=== PATIENT | male | born 1960 | race Caucasian/White ===

== ENCOUNTER 2018-04-06 23:38 | Emergency (ER) | payer MEDICAID ==
[~2018-04-06] VITALS: Ht 180.3 cm; Wt 113.4 kg
[~2018-04-06 23:38] MED LIST: ABILIFY10 MG ORAL; ALBUTEROL SULF8.5 GM INH; AMLODIPINE BESY10 MG ORAL; AZITHROMYCIN250 MG ORAL; FLUTICASONE PRO16 G1 NASAL; FUROSEMIDE20 M1 ORAL; HYDROXYZIN50 MG/25 M PO; IBUPROFEN600 MG ORAL; LEVAQUIN750 MG ORAL; LISINOPRIL-HCT1 EAC2 ORAL; METOPROLOL SUC100 MG ORAL; NAPROXEN500 M2 ORAL; NORCO 5-325 TA1 EACH ORAL; NORCO 5-325 TA1 EACH PO; PREDNISONE20 MG ORAL; QUETIAPINE FUMA25 MG ORAL; VENLAFAXINE HC150 MG ORAL
[2018-04-06 23:50] VITALS: BP 130/79
[2018-04-07] MEDS ORDERED: Thiamine HCl 100 MG in D5W 55 ML IVPB ONE ×2
--- NOTE | 2018-04-07 00:47 | Emergency Room Report ---
History of Present Illness General Chief Complaint: Behavioral Complaint Source: Patient Present Illness HPI Patient is a 57-year-old male brought in by EMS after increased suicidal thoughts. The patient reports drinking heavily earlier in the day. He states his become increasingly depressed over his relationship and states that he had been taking of harming himself. The patient reports wanting to stab himself with a knife but does not own a knife. The patient reports previously being on Celexa as well as other antidepressants. He denies any current medical treatment. He reports hospitalization approximate one year ago. Allergies: Coded Allergies: No Known Allergies (Unverified , 07/16/13) Patient History Past Medical History: see triage record Reviewed Nursing Documentation: PMH: Agreed; PSxH: Agreed Nursing Documentation-PMH Hx Hypertension: Yes Hx Asthma: Yes Review of Systems All Other Systems: negative except mentioned in HPI Physical Exam Vital Signs Date Time Temp Pulse Resp B/P (MAP) Pulse Ox O2 Delivery O2 Flow Rate FiO2 04/06/18 23:39 98.0 98 19 147/80 98 Room Air 98.1 Sp02 EP Interpretation: reviewed, normal General Appearance: alert/responsive, no apparent distress, GCS 15, non-toxic Head: normocephalic, atraumatic Eyes: normal eye exam, PERRL, lids + conjunctiva normal ENT: hearing intact, no angioedema Neck: supple/symm/no masses, no meningismus Respiratory: effort normal, no wheezing, chest symmetrical Cardiovascular: regular rate, rhythm, no edema Cardiovascular #2: 2+ carotid (R), 2+ carotid (L), 2+ dorsalis pedis (R), 2+ dorsalis pedis (L) Gastrointestinal: non-tender, no mass, non-distended, no rebound/guarding, normal bowel sounds Musculoskeletal: gait & station normal, strength & tone normal, normal ROM, non -tender Neurologic: oriented x3, sensory intact, normal speech Psychiatric: normal inspection, judgment & insight normal, memory normal, no delusions Skin: no rash, well hydrated Lymphatic: normal inspection Medical Decision Making Diagnostic Impression: Primary Impression: Suicidal ideation Additional Impression: Alcohol abuse ER Course patient presented for suicidal thoughts.Differential diagnoses include substance abuse, psychosis, bipolar disorder, depression, malingering. Because of complexity of patient's case laboratory testing and imaging studies were ordered.The laboratory testing showed evidence of elevated blood alcohol level. The patient was noted to be placed on a 5150 by [employer] for danger to self.The patient be medically cleared after alcohol level decreases. I anticipate the patient will be transferred for psychiatric placement.The patient is medically cleared for psychiatric placement. Labs Test 04/07/18 00:45 04/07/18 03:00 White Blood Count 5.6 K/UL (4.8-10.8) Red Blood Count 5.01 M/UL (4.70-6.10) Hemoglobin 14.6 G/DL (14.2-18.0) Hematocrit 45.2 % (42.0-52.0) Mean Corpuscular Volume 90 FL (80-99) Mean Corpuscular Hemoglobin 29.1 PG (27.0-31.0) Mean Corpuscular Hemoglobin Concent 32.3 G/DL (32.0-36.0) Red Cell Distribution Width 11.8 % (11.6-14.8) Platelet Count 182 K/UL (150-450) Mean Platelet Volume 6.1 FL (6.5-10.1) Neutrophils (%) (Auto) 59.3 % (45.0-75.0) Lymphocytes (%) (Auto) 21.5 % (20.0-45.0) Monocytes (%) (Auto) 14.7 % (1.0-10.0) Eosinophils (%) (Auto) 3.2 % (0.0-3.0) Basophils (%) (Auto) 1.3 % (0.0-2.0) Sodium Level 143 MMOL/L (136-145) Potassium Level 3.3 MMOL/L (3.5-5.1) Chloride Level 106 MMOL/L (98-107) Carbon Dioxide Level 26 MMOL/L (21-32) Anion Gap 11 mmol/L (5-15) Blood Urea Nitrogen 8 mg/dL (7-18) Creatinine 0.8 MG/DL (0.55-1.30) Estimat Glomerular Filtration Rate > 60 mL/min (>60) Glucose Level 112 MG/DL (74-106) Calcium Level 8.4 MG/DL (8.5-10.1) Total Bilirubin 0.5 MG/DL (0.2-1.0) Aspartate Amino Transf (AST/SGOT) 71 U/L (15-37) Alanine Aminotransferase (ALT/SGPT) 61 U/L (12-78) Alkaline Phosphatase 70 U/L (46-116) Total Protein 7.5 G/DL (6.4-8.2) Albumin 3.0 G/DL (3.4-5.0) Globulin 4.5 g/dL Albumin/Globulin Ratio 0.7 (1.0-2.7) Salicylates Level 1.8 ug/mL (2.8-20) Urine Opiates Screen Negative (NEGATIVE) Acetaminophen Level < 2 MCG/ML (10-30) Urine Barbiturates Screen Negative (NEGATIVE) Phencyclidine (PCP) Screen Negative (NEGATIVE) Urine Amphetamines Screen Negative (NEGATIVE) Urine Benzodiazepines Screen Negative (NEGATIVE) Urine Cocaine Screen Negative (NEGATIVE) Urine Marijuana (THC) Screen Positive (NEGATIVE) Serum Alcohol < 3 mg/dL Last Vital Signs Date Time Temp Pulse Resp B/P (MAP) Pulse Ox O2 Delivery O2 Flow Rate FiO2 04/06/18 23:39 98.0 98 19 147/80 98 Room Air 98.1 Status: improved Disposition: XFER TO PSYCH HOSP/UNIT Condition: Stable Referrals: [facility],REFERRING (PCP) Pablo Sanchez MD Apr 07, 2018 00:47
[2018-04-07 01:34] LABS: BASOPHILS % (AUTO) 1.3 % (0.0-2.0); EOSINOPHILS % (AUTO) 3.2 % (0.0-3.0); HEMATOCRIT 45.2 % (42.0-52.0); HEMOGLOBIN 14.6 G/DL (14.2-18.0); LYMPHOCYTES % (AUTO) 21.5 % (20.0-45.0); MEAN CORPUSCULAR VOLUME 90 FL (80-99); MONOCYTES % (AUTO) 14.7 % (1.0-10.0); NEUTROPHILS % (AUTO) 59.3 % (45.0-75.0); PLATELET COUNT 182 K/UL (150-450); RED BLOOD COUNT 5.01 M/UL (4.70-6.10); RED CELL DISTRIBUTION WIDTH 11.8 % (11.6-14.8); WHITE BLOOD COUNT 5.6 K/UL (4.8-10.8)
[2018-04-07 01:44] LABS: ANION GAP 11 mmol/L (5-15); BLOOD UREA NITROGEN 8 mg/dL (7-18); CALCIUM 8.4 MG/DL (8.5-10.1); CARBON DIOXIDE 26 MMOL/L (21-32); CHLORIDE 106 MMOL/L (98-107); CREATININE 0.8 MG/DL (0.55-1.30); POTASSIUM 3.3 MMOL/L (3.5-5.1); SODIUM 143 MMOL/L (136-145)
[2018-04-07 01:49] LABS: ALANINE AMINOTRANSFERASE 61 U/L (12-78); ALBUMIN/GLOBULIN RATIO 0.7 (1.0-2.7); ALKALINE PHOSPHATASE 70 U/L (46-116); ASPARTATE AMINO TRANSFERASE 71 U/L (15-37); BILIRUBIN,TOTAL 0.5 MG/DL (0.2-1.0)
[2018-04-07 04:00] VITALS: BP 129/75
[2018-04-07 06:54] VITALS: BP 137/90
[2018-04-07] MEDS ORDERED: NKM (07:17)
[2018-04-07 07:24] VITALS: BP 133/90
[2018-04-07 10:40] VITALS: BP 127/88
[2018-04-07 12:14] LABS: APPEARANCE,URINE CLEAR; BILIRUBIN, URINE NEGATIVE (NEGATIVE); GLUCOSE, URINE (UA) NEGATIVE (NEGATIVE); KETONES,URINE NEGATIVE (NEGATIVE); LEUKOCYTE ESTERASE ,URINE 1+ (NEGATIVE); NITRITE,URINE NEGATIVE (NEGATIVE); PH,URINE 6 (4.5-8.0)
[2018-04-07 12:31] LABS: PROTEIN,URINE 1+ (NEGATIVE); UROBILINOGEN,URINE 1 MG/DL (0.0-1.0)
[2018-04-07 12:41] LABS: COLOR,URINE YELLOW
[2018-04-07 17:30] VITALS: BP 186/116
[2018-04-07] MEDS ORDERED: cloNIDine 0.2mg Tab ORAL ONE (17:30)
== END 2018-04-07 17:33 ==
LOC: EDUNIT# 23:38 → EDBD 23:38 → EMR 23:59
DX: R45.851 Suicidal ideations (principal); F10.10 Alcohol abuse, uncomplicated; I10 Essential (primary) hypertension; J45.909 Unspecified asthma, uncomplicated
CPT/HCPCS: 36415; 80053; 80307; 80329; 81001; 85025; 87086; 96365; 99284; J8499

== ENCOUNTER 2018-04-16 11:39 | Emergency (ER) | payer MEDICAID ==
[~2018-04-16] VITALS: Ht 180.3 cm; Wt 108.9 kg
[~2018-04-16 11:39] MED LIST changes: +NKM
[2018-04-16 12:00] VITALS: BP 135/83
[2018-04-16] MEDS ORDERED: BACITRACIN ZIN1 EACH TOPIC (12:14)
[2018-04-16] MEDS ORDERED: CEPHALEXIN500 MG ORAL (12:14)
[2018-04-16] MEDS ORDERED: Tetanus/Diptheria/Pertussis Vaccine 0.5ml Syr IM ONE (12:15)
[2018-04-16] MEDS ORDERED: Bacitracin Oint UD TOPIC ONE (12:15)
--- NOTE | 2018-04-16 12:21 | Emergency Room Report ---
History of Present Illness General Chief Complaint: Laceration Source: Patient Present Illness HPI Patient is a 57-year-old male brought in by self after increased left index finger pain patient reports having the injured his finger while cutting drywall yesterday. He is unsure when his last tetanus vaccine is. He reported having some bleeding to the finger. Injury occurred approximately 18 hours prior to arrival. He denies any numbness or tingling. He denies any difficulty with movement. Allergies: Coded Allergies: No Known Allergies (Unverified , 07/16/13) Patient History Reviewed Nursing Documentation: PMH: Agreed; PSxH: Agreed Nursing Documentation-[facility] Past Medical History: No History, Except For Hx Hypertension: Yes Hx Asthma: Yes Review of Systems All Other Systems: negative except mentioned in HPI Physical Exam Vital Signs Date Time Temp Pulse Resp B/P (MAP) Pulse Ox O2 Delivery O2 Flow Rate FiO2 04/16/18 11:43 98.1 82 18 135/83 94 Room Air 98.1 General Appearance: well appearing, no apparent distress, alert, GCS 15 Head: normocephalic, atraumatic ENT: hearing grossly normal, normal voice Neck: full range of motion, supple Respiratory: no respiratory distress, speaking full sentences Cardiovascular #1: normal inspection Gastrointestinal: normal inspection Musculoskeletal: normal range of motion - normal FDP and FDS function, other - superficial laceration, 2 cm no active bleeding or discharge Neurologic: normal inspection, alert, oriented x3, responsive, social service technician III-XII nml as tested, normal gait Psychiatric: mood/affect normal, no suicidal/homicidal ideation Skin: no rash Medical Decision Making Diagnostic Impression: Primary Impression: Laceration ER Course Patient presented for laceration. Differential diagnoses included foreign body , nerve injury, arterial injury among others. The patient was noted to have a superficial laceration. Because of prolonged time to presentations was not be sutured.The patient is advised to follow up with primary care doctor in 2-3 days for wound check.. The wound will be left open and he was given oral antibiotics. The tetanus vaccine was updated. Patient is advised to return if any worsening condition or if any changes in status that are concerning. This report is dictated with [employer] hydrotreater operator software which may occasionally lead to discrepancies related to use of this software. Last Vital Signs Date Time Temp Pulse Resp B/P (MAP) Pulse Ox O2 Delivery O2 Flow Rate FiO2 04/16/18 12:00 98.1 88 18 135/83 94 Room Air 98.1 Status: improved Disposition: HOME, SELF-CARE Condition: Stable Scripts Bacitracin Zinc* (BACITRACIN ZINC*) 1 Each Packet 1 APPLIC TOPIC THREE TIMES A DAY, #20 PACKET Prov: Pablo Sanchez MD 04/16/18 Cephalexin* (KEFLEX*) 500 Mg Capsule 500 MG ORAL EVERY 6 HOURS, #28 CAP Prov: Pablo Sanchez MD 04/16/18 Patient Instructions: Nonsutured Laceration Care Pablo Sanchez MD Apr 16, 2018 12:21
== END 2018-04-16 13:03 | disposition home or self-care (01) ==
LOC: EMR 12:15
DX: S61.211A Laceration without foreign body of left index finger without damage to nail, initial encounter (principal); W26.0XXA Contact with knife, initial encounter; Y93.89 Activity, other specified; Y92.89 Other specified places as the place of occurrence of the external cause; I10 Essential (primary) hypertension; J45.909 Unspecified asthma, uncomplicated; Z23 Encounter for immunization
CPT/HCPCS: 90471; 90715; 99283